=== PATIENT | male | born 1955 | race Caucasian/White ===

== ENCOUNTER → 2016-06-18 | Outpatient (CLI) | payer MEDICARE ==
--- NOTE | 2016-06-18 13:46 | CT ---
EXAMINATION TYPE: CT cervical spine wo con DATE OF EXAM: 06/18/2016 12:54 PM COMPARISON: NONE HISTORY: pain back of neck and into Rt shoulder posterior aspect. Stiffness of joint per order. CT DLP: 353.1 mGycm. Automated Exposure Control for Dose Reduction was Utilized. TECHNIQUE: CT scan of the cervical spine is obtained without contrast, axial images are obtained, sa gittal and coronal reformatted images are also reviewed. FINDINGS: There is completely opacified visualized portion of left mastoid air cells. Cervical spine is visualized in its entirety from C1 through upper thoracic levels, demonstrates satisfactory alignm ent without evidence of acute fracture or dislocation. Prevertebral soft tissue appears within sunday l limits. The C1-C2 articulation is within normal limits on the coronal images. Vertebral body heights are maintained. There is mild to moderate disc space narrowing with prominent anterior inferior spur C3-C4 level. There are artificial disks with anterior fusion plate at C4-C6 le vels, some ossific fusion at these levels is present. There is prominent anterior inferior osteophyte from T6 vertebra seen on sagittal image 53. No large posterior disc herniations are seen on sagittal images. Review of axial images at C2-C3 level shows left-sided uncovertebral facet degenerative changes causi ng moderate left-sided neural foraminal narrowing. Axial images at C3-C4 level show uncovertebral facet degenerative changes bilaterally causing moderat e to severe right and moderate left-sided neural foraminal narrowing. Axial images at C4-C5 through C6-C7 level show artificial disc material anterior fusion plate, bilate ral neural foramina are patent and spinal canal is preserved. Axial images at C7-T1 level are felt within normal limits. Mild emphysematous change in visualized lung apices is seen. There is moderate to severe calcified pl aque right carotid bulb extending into proximal internal carotid artery and more moderate plaque seen in the left carotid bulb. Mild mucosal thickening in the inferior portion of bilateral maxillary sin uses is present. IMPRESSION: There is postsurgical change C4-C6 level with satisfactory alignment, there is multilevel degenerative change most prominent at C3-C4 level. There is possible left-sided mastoiditis, clinica l correlation advised.
== END | disposition home or self-care (01) ==
LOC: RADCTMAIN 07:26
PROVIDERS: ATTEND Family Medicine
DX: M47.812 Spondylosis without myelopathy or radiculopathy, cervical region (principal); Z98.890 Other specified postprocedural states
CPT/HCPCS: 72125

== ENCOUNTER → 2016-07-10 | Outpatient (CLI) | payer MEDICARE ==
[2016-07-10 10:49] LABS: Basophils % (A) 0 %; CH 34.8; CHCM 33.8; Eosinophils # (A) 0.1 k/uL (0-0.7); Eosinophils % (A) 2 %; HCT 39.6 % (39.0-53.0); HDW 2.22; HGB 13.2 gm/dL (13.0-17.5); Luc # (Auto) 0.23; Luc % (Auto) 3; Lymphocytes # (A) 1.2 k/uL (1.0-4.8); Lymphocytes % (A) 15 %; MCH 34.6 pg (25.0-35.0); MCHC 33.5 g/dL (31.0-37.0); MCV 103.3 fL (80.0-100.0); Macrocytosis Slight; Monocytes # (A) 0.5 k/uL (0-1.0); Monocytes % (A) 7 %; Neutrophils # (A) 5.6 k/uL (1.3-7.7); Neutrophils % (A) 73 %; RBC 3.83 m/uL (4.30-5.90); RDW 12.7 % (11.5-15.5); WBC 7.6 k/uL (3.8-10.6)
[2016-07-10 11:29] LABS: ALT 47 U/L (21-72); AST 44 U/L (17-59); Alkaline Phosphatase 78 U/L (38-126); Anion Gap 10 mmol/L; Blood Urea Nitrogen 19 mg/dL (9-20); C Reactive Protein 10.8 mg/L (<10.0); Calcium 10.1 mg/dL (8.4-10.2); Carbon Dioxide 24 mmol/L (22-30); Chloride 108 mmol/L (98-107); Glucose 119 mg/dL (74-99); Non-African American GFR(MDRD) >60 (>60 ml/min/1.73 sqM); Potassium 4.8 mmol/L (3.5-5.1); Sodium 142 mmol/L (137-145); Total Bilirubin 0.7 mg/dL (0.2-1.3); Total Protein 7.7 g/dL (6.3-8.2)
[2016-07-10 15:12] LABS: Erythrocyte Sedimentation Rate 28 mm/hr (0-15)
== END | disposition home or self-care (01) ==
LOC: LABWHC1 09:34
PROVIDERS: ATTEND Physical Medicine & Rehabilitation
DX: M50.123 Cervical disc disorder at C6-C7 level with radiculopathy (principal); M47.22 Other spondylosis with radiculopathy, cervical region; M96.1 Postlaminectomy syndrome, not elsewhere classified; F43.12 Post-traumatic stress disorder, chronic
CPT/HCPCS: 36415; 80053; 85025; 85652; 86140

== ENCOUNTER 2016-07-23 12:37 | Inpatient (IN) | payer MEDICARE ==
[2016-07-23] MEDS ORDERED: SODIUM CHLORIDE 0.9% 1,000 ML IV STA (12:52)
[2016-07-23] MEDS ORDERED: LORazepam 2 MG/ML SYRINGE IV STA (13:08)
[2016-07-23 13:12] LABS: Basophils % (A) 0 %; CH 34.7; CHCM 34.3; Eosinophils # (A) 0.1 k/uL (0-0.7); Eosinophils % (A) 1 %; HCT 39.4 % (39.0-53.0); HDW 2.09; HGB 13.4 gm/dL (13.0-17.5); Luc # (Auto) 0.16; Luc % (Auto) 2; Lymphocytes # (A) 1.4 k/uL (1.0-4.8); Lymphocytes % (A) 17 %; MCH 34.6 pg (25.0-35.0); MCV 101.7 fL (80.0-100.0); Macrocytosis Slight; Mean Platelet Volume 7.7; Monocytes # (A) 0.4 k/uL (0-1.0); Monocytes % (A) 5 %; Neutrophils # (A) 6.6 k/uL (1.3-7.7); Neutrophils % (A) 76 %; RBC 3.88 m/uL (4.30-5.90); RDW 13.2 % (11.5-15.5); WBC 8.7 k/uL (3.8-10.6); WBC (Perox) 8.55
--- NOTE | 2016-07-23 13:22 | ED ---
SOB HPI - General Chief Complaint: Shortness of Breath Stated Complaint: SOB Time Seen by Provider: 07/23/16 12:37 Source: patient, EMS, RN notes reviewed Mode of arrival: EMS Limitations: no limitations - History of Present Illness Initial Comments: This is a 60-year-old male was brought in by EMS for complaints of shortness of breath is been going on since about 1 AM this morning he was shaky and flushed- appearing he did have chest pain last evening took one nitroglycerin woke up and still had chest pain but difficulty breathing. He was given 4 aspirin in route by EMS chest pain has resolved he has some nausea was noted to be in sinus tachycardia symptoms relief with this medication. He does still complain of dyspnea. He does admit to smoking cigarettes and drinking alcohol he does have a history of alcoholism he was off alcohol for a long period time he has started drinking again. He does have a history of emphysema COPD posterior medic stress disorder. Some cough no phlegm production no other symptoms reported at this time MD Complaint: shortness of breath, anxiety - Related Data Home Medications Medication Instructions Recorded Confirmed ALPRAZolam [Xanax] 2 mg PO BID 07/23/16 07/23/16 Aspirin 81 mg PO DAILY 07/23/16 07/23/16 Cholecalciferol [Vitamin D3] 1,000 unit PO DAILY 07/23/16 07/23/16 Clindamycin HCl [Cleocin] 600 mg PO ONCE PRN 07/23/16 07/23/16 Cyanocobalamin (Vitamin B-12) 1,000 mcg PO DAILY 07/23/16 07/23/16 [Vitamin B-12] Lisinopril 40 mg PO DAILY 07/23/16 07/23/16 Multivitamins, Thera [Multivitamin 1 tab PO DAILY 07/23/16 07/23/16 (formulary)] Nitroglycerin Sl Tabs [Nitrostat] 0.4 mg SUBLINGUAL Q5M PRN 07/23/16 07/23/16 Nitroglycerin [Nitro-Time] 6.5 mg PO BID 07/23/16 07/23/16 Omeprazole [PriLOSEC] 20 mg PO AC-BID 07/23/16 07/23/16 Simvastatin 80 mg PO DAILY 07/23/16 07/23/16 Sucralfate [Carafate] 1 gm PO AC-TID 07/23/16 07/23/16 diphenhydrAMINE [Benadryl] 25 mg PO QID PRN 07/23/16 07/23/16 Allergies Allergy/AdvReac Type Severity Reaction Status Date / Time amoxicillin Allergy Unknown Verified 07/23/16 13:53 clavulanic acid Allergy Unknown Verified 07/23/16 13:53 [From Augmentin] escitalopram [From Lexapro] Allergy Unknown Verified 07/23/16 13:53 latex Allergy Unknown Verified 07/23/16 13:53 metformin Allergy Unknown Verified 07/23/16 13:53 methylprednisolone Allergy Unknown Verified 07/23/16 13:53 Review of Systems ROS Statement: Those systems with pertinent positive or pertinent negative responses have been documented in the HPI. ROS Other: All systems not noted in ROS Statement are negative. Past Medical History Past Medical History: COPD, Hyperlipidemia, Hypertension History of Any Multi-Drug Resistant Organisms: None Reported Past Surgical History: Adenoidectomy, Appendectomy, Heart Catheterization, Tonsillectomy Additional Past Surgical History / Comment(s): surgery on his teeth Past Psychological History: Anxiety, PTSD Smoking Status: Current every day smoker Past Alcohol Use History: Daily, Heavy Past Drug Use History: None Reported General Exam - General Exam Comments Initial Comments: This is a well-developed well-nourished awake alert anxious appearing male he is hyperventilating Limitations: no limitations General appearance: alert, anxious, in distress Head exam: Present: atraumatic, normocephalic, normal inspection Eye exam: Present: normal appearance, PERRL, EOMI. Absent: scleral icterus, conjunctival injection, periorbital swelling ENT exam: Present: normal exam, mucous membranes moist Neck exam: Present: normal inspection. Absent: tenderness, meningismus, lymphadenopathy Respiratory exam: Present: decreased breath sounds. Absent: respiratory distress, wheezes, rales, rhonchi, stridor Cardiovascular Exam: Present: normal rhythm, tachycardia. Absent: systolic murmur, diastolic murmur, rubs, gallop, clicks GI/Abdominal exam: Present: soft, normal bowel sounds. Absent: distended, tenderness, guarding, rebound, rigid Extremities exam: Present: normal inspection, full ROM, normal capillary refill. Absent: tenderness, pedal edema, joint swelling, calf tenderness Back exam: Present: normal inspection Neurological exam: Present: alert, oriented X3, CN II-XII intact Psychiatric exam: Present: normal affect, normal mood Skin exam: Present: warm, dry, intact, normal color. Absent: rash Course Vital Signs 07/23/16 07/23/16 07/23/16 12:45 13:02 13:52 Temperature 98.3 F Pulse Rate 102 H 110 H Respiratory 18 18 18 Rate Blood Pressure 128/79 132/81 O2 Sat by Pulse 100 100 Oximetry 07/23/16 07/23/16 14:44 15:48 Temperature Pulse Rate 91 99 Respiratory 18 18 Rate Blood Pressure 118/78 126/82 O2 Sat by Pulse 100 97 Oximetry Medical Decision Making - Medical Decision Making I did discuss findings with patient family members. Also Dr. Rgoers. The presentation clinically is consistent with cardiac disease though GI etiologies not totally ruled out the patient states he has some epigastric discomfort. Patient will be admitted with cardiology consultation also vascular surgery consultation for evaluation the chronic appearing dissection - Lab Data Result diagrams: 07/23/16 13:00 07/23/16 13:00 Lab Results 07/23/16 07/23/16 07/23/16 Range/Units 13:00 13:00 13:00 WBC 8.7 (3.8-10.6) k/uL RBC 3.88 L (4.30-5.90) m/uL Hgb 13.4 (13.0-17.5) gm/dL Hct 39.4 (39.0-53.0) % MCV 101.7 H (80.0-100.0) fL MCH 34.6 (25.0-35.0) pg MCHC 34.0 (31.0-37.0) g/dL RDW 13.2 (11.5-15.5) % Plt Count 274 (150-450) k/uL Neutrophils % 76 % Lymphocytes % 17 % Monocytes % 5 % Eosinophils % 1 % Basophils % 0 % Neutrophils # 6.6 (1.3-7.7) k/uL Lymphocytes # 1.4 (1.0-4.8) k/uL Monocytes # 0.4 (0-1.0) k/uL Eosinophils # 0.1 (0-0.7) k/uL Basophils # 0.0 (0-0.2) k/uL Macrocytosis Slight PT (9.0-12.0) sec INR (<1.1) APTT (22.0-30.0) sec D-Dimer (<0.60) mg/L FEU Sodium 144 (137-145) mmol/L Potassium 4.5 (3.5-5.1) mmol/L Chloride 111 H (98-107) mmol/L Carbon Dioxide 20 L (22-30) mmol/L Anion Gap 13 mmol/L BUN 17 (9-20) mg/dL Creatinine 1.16 (0.66-1.25) mg/dL Est GFR (MDRD) Af Amer >60 (>60 ml/min/1.73 sqM) Est GFR (MDRD) Non-Af >60 (>60 ml/min/1.73 sqM) Glucose 107 H (74-99) mg/dL Calcium 10.6 H (8.4-10.2) mg/dL Magnesium 1.4 L (1.6-2.3) mg/dL Total Bilirubin 0.9 (0.2-1.3) mg/dL AST 43 (17-59) U/L ALT 47 (21-72) U/L Alkaline Phosphatase 74 (38-126) U/L Total Creatine Kinase 83 (55-170) U/L CK-MB (CK-2) 0.5 (0.0-2.4) ng/mL CK-MB (CK-2) Rel Index 0.6 Troponin I <0.012 (0.000-0.034) ng/mL NT-Pro-B Natriuret Pep pg/mL Total Protein 7.8 (6.3-8.2) g/dL Albumin 4.6 (3.5-5.0) g/dL Serum Alcohol <10 mg/dL 07/23/16 07/23/16 Range/Units 13:00 13:00 WBC (3.8-10.6) k/uL RBC (4.30-5.90) m/uL Hgb (13.0-17.5) gm/dL Hct (39.0-53.0) % MCV (80.0-100.0) fL MCH (25.0-35.0) pg MCHC (31.0-37.0) g/dL RDW (11.5-15.5) % Plt Count (150-450) k/uL Neutrophils % % Lymphocytes % % Monocytes % % Eosinophils % % Basophils % % Neutrophils # (1.3-7.7) k/uL Lymphocytes # (1.0-4.8) k/uL Monocytes # (0-1.0) k/uL Eosinophils # (0-0.7) k/uL Basophils # (0-0.2) k/uL Macrocytosis PT 10.2 (9.0-12.0) sec INR 1.0 (<1.1) APTT 24.3 (22.0-30.0) sec D-Dimer 0.65 H (<0.60) mg/L FEU Sodium (137-145) mmol/L Potassium (3.5-5.1) mmol/L Chloride (98-107) mmol/L Carbon Dioxide (22-30) mmol/L Anion Gap mmol/L BUN (9-20) mg/dL Creatinine (0.66-1.25) mg/dL Est GFR (MDRD) Af Amer (>60 ml/min/1.73 sqM) Est GFR (MDRD) Non-Af (>60 ml/min/1.73 sqM) Glucose (74-99) mg/dL Calcium (8.4-10.2) mg/dL Magnesium (1.6-2.3) mg/dL Total Bilirubin (0.2-1.3) mg/dL AST (17-59) U/L ALT (21-72) U/L Alkaline Phosphatase (38-126) U/L Total Creatine Kinase (55-170) U/L CK-MB (CK-2) (0.0-2.4) ng/mL CK-MB (CK-2) Rel Index Troponin I (0.000-0.034) ng/mL NT-Pro-B Natriuret Pep 123 pg/mL Total Protein (6.3-8.2) g/dL Albumin (3.5-5.0) g/dL Serum Alcohol mg/dL - EKG Data -: EKG Interpreted by [facility] EKG shows normal: sinus rhythm (EKG shows sinus tachycardia of 102. Interval 134 QRS duration 70 daily since QTC of 344/448 poor R-wave progression) - Radiology Data Radiology results: report reviewed (I did review the imaging and results x-ray was negative for acute findings CAT scan was done due to the elevated d-dimer. 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 Please see the complete report), image reviewed Disposition Clinical Impression: Chest pain, COPD exacerbation Disposition: ADMITTED IP TO THIS HOSP Condition: Stable Referrals: Gregorio Rogers MD [Primary Care Provider] - 1-2 days
[2016-07-23 13:26] LABS: ALT 47 U/L (21-72); AST 43 U/L (17-59); Alcohol <10 mg/dL; Alkaline Phosphatase 74 U/L (38-126); Anion Gap 13 mmol/L; Blood Urea Nitrogen 17 mg/dL (9-20); Calcium 10.6 mg/dL (8.4-10.2); Carbon Dioxide 20 mmol/L (22-30); Chloride 111 mmol/L (98-107); Glucose 107 mg/dL (74-99); Magnesium 1.4 mg/dL (1.6-2.3); Non-African American GFR(MDRD) >60 (>60 ml/min/1.73 sqM); Potassium 4.5 mmol/L (3.5-5.1); Sodium 144 mmol/L (137-145); Total Bilirubin 0.9 mg/dL (0.2-1.3); Total Protein 7.8 g/dL (6.3-8.2)
[2016-07-23 13:28] LABS: Partial Thromboplastin Time 24.3 sec (22.0-30.0); Prothrombin Time 10.2 sec (9.0-12.0)
--- NOTE | 2016-07-23 13:33 | XR ---
EXAMINATION TYPE: XR chest 2V DATE OF EXAM: 07/23/2016 1:25 PM COMPARISON: 06/12/2014 TECHNIQUE: PA and lateral views submitted. HISTORY: Difficulty breathing FINDINGS: The lungs are clear and there is no pneumothorax, pleural effusion, or focal pneumonia. Arthropathy of the shoulders. IMPRESSION: 1. No acute process.
[2016-07-23] MEDS ORDERED: PROMETHAZINE INJ 25 MG in SODIUM CHLORIDE 0.9% 50 ML IVPB STA (13:58)
[2016-07-23 14:17] LABS: Creatine Kinase 83 U/L (55-170)
[2016-07-23 14:28] LABS: Creatine Kinase MB 0.5 ng/mL (0.0-2.4); Troponin I <0.012 ng/mL (0.000-0.034)
[2016-07-23] MEDS ORDERED: MAGNESIUM SULFATE-D5W PMX 1 GM in DEXTROSE/WATER 1 100ML.BAG IVPB ONE ×2 (15:00→17:00)
[2016-07-23] MEDS ORDERED: RX INFO: IV CONTRAST WAS GIVEN 1 EACH MISC MISCELLANE PRN (15:01)
--- NOTE | 2016-07-23 16:09 | CT ---
EXAMINATION TYPE: CT angio chest DATE OF EXAM: 07/23/2016 3:34 PM COMPARISON: Previous study dated 06/12/2014. HISTORY: SOB CT DLP: 478 mGycm Automated exposure control for dose reduction was used. CONTRAST: CTA scan of the thorax is performed with IV Contrast, patient injected with 100 mL of Omnipaque 350, pulmonary embolism protocol. MIP images are created and reviewed. FINDINGS: There are diffuse emphysematous changes throughout the lungs. These are reasonably mild. Th ere is some dependent atelectasis in the dependent portions of the lungs. No parenchymal nodules are seen. There is no significant axillary, mediastinal or hilar adenopathy. There is no evidence of pulmonary embolus. The aorta is normal in caliber. There is a type B self-limiting chronic dissection within the thoraci c and upper abdominal aorta. The heart is not enlarged. The esophagus is patulous. There is debris within the esophagus. Visualized upper abdominal structures are unremarkable. No bony destructive lesion is seen. IMPRESSION: 1. THIS EXAMINATION IS NEGATIVE FOR PULMONARY EMBOLUS. 2. 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 3. DIFFUSE EMPHYSEMATOUS CHANGES THROUGHOUT THE LUNGS. 4. PATULOUS ESOPHAGUS CONTAINING DEBRIS.
[2016-07-23] MEDS ORDERED: HEPARIN SODIUM,PORCINE 5,000 UNIT/ML 1 ML VIAL IV ONE (16:27)
[2016-07-23] MEDS ORDERED: NITROGLYCERIN SL TABS 0.4 MG TAB SUBLINGUAL PRN (16:27)
[2016-07-23] MEDS ORDERED: HEPARIN SODIUM,PORCINE/D5W PMX 25,000 UNIT in DEXTROSE/WATER 1 500ML.BAG IV SCH (16:30)
[2016-07-23] MEDS ORDERED: diphenhydrAMINE 25 MG CAP PO PRN (16:30)
[2016-07-23] MEDS: SODIUM CHLORIDE 0.9% 1,000 ML IV SCH (16:50)
[2016-07-23] MEDS ORDERED: PANTOPRAZOLE 40 MG TABLET PO SCH (17:30)
[2016-07-23] MEDS ORDERED: NITROGLYCERIN OINT 1 INCH/GM PACKET TOPICAL SCH (18:00)
[2016-07-23 19:44] LABS: Creatine Kinase 86 U/L (55-170)
[2016-07-23] MEDS ORDERED: LORazepam 2 MG/ML SYRINGE IV PRN ×2 (19:55)
[2016-07-23 19:57] LABS: Creatine Kinase MB 0.4 ng/mL (0.0-2.4); Troponin I <0.012 ng/mL (0.000-0.034)
[2016-07-23] MEDS ORDERED: methylPREDNISolone SOD SUCCI 40 MG/ML 1 ML VIAL IV STA (20:04)
[2016-07-23] MEDS ORDERED: THIAMINE 100 MG/ML 2 ML VIAL IM STA (20:05)
[2016-07-23 20:31] VITALS: BMI 25.3
[2016-07-23] MEDS: ONDANSETRON 4 MG/2 ML VIAL IVP PRN (20:32)
[2016-07-23] MEDS: SUCRALFATE 1 GM TAB PO SCH (21:27)
[2016-07-23] MEDS ORDERED: PANTOPRAZOLE 40 MG/10 ML VIAL IVP ONE (21:29)
--- NOTE | 2016-07-23 21:29 | US ---
EXAMINATION TYPE: US abdomen complete DATE OF EXAM: 07/23/2016 9:04 PM COMPARISON: CT chest in PACS CLINICAL HISTORY: Nausea. Difficult exam as patient is in pain and vomiting throughout exam making it difficult to take a deep breath in and hold it. Patient movement throughout exam EXAM MEASUREMENTS: Liver Length: 13.8 cm Gallbladder Wall: 0.2 cm CBD: 0.4 cm Spleen: 7.1 cm Right Kidney: 9.6 x 5.2 x 5.4 cm Left Kidney: 9.5 x 5.7 x 4.9 cm Pancreas: Tail obscured by bowel gas, visualized portions wnl Liver: wnl Gallbladder: wnl Evidence for sonographic Rivera's sign: No CBD: wnl Spleen: wnl Right Kidney: No hydronephrosis or masses seen Left Kidney: No hydronephrosis or masses seen Upper IVC: wnl Abd Aorta: Proximal aorta obscured by bowel gas. Unable to visualize dissection seen on CT today IMPRESSION: Negative complete abdominal sonogram. No gallstones or dilated ducts.
[2016-07-23] MEDS: LORazepam 2 MG/ML SYRINGE IV PRN (21:34)
[2016-07-23] MEDS: ALPRAZolam 0.5 MG TAB PO SCH (21:35)
[2016-07-23] MEDS: THIAMINE 100 MG TAB PO SCH (21:35)
[2016-07-23] MEDS: NITROGLYCERIN EXTENDED RELEASE 6.5 MG CAPSULE.ER PO SCH (21:40)
[2016-07-23] MEDS: HYDROmorphone 1 MG/ML 1 ML SYRINGE IVP PRN (22:58)
[2016-07-24] MEDS ORDERED: HEPARIN SODIUM,PORCINE 5,000 UNIT/ML 1 ML VIAL IV STA (01:16)
[2016-07-24 01:58] LABS: Creatine Kinase 140 U/L (55-170)
[2016-07-24 02:11] LABS: Creatine Kinase MB 0.6 ng/mL (0.0-2.4); Troponin I <0.012 ng/mL (0.000-0.034)
[2016-07-24] MEDS: HYDROmorphone 1 MG/ML 1 ML SYRINGE IVP PRN ×5 (02:16→21:04)
[2016-07-24] MEDS: ONDANSETRON 4 MG/2 ML VIAL IVP PRN ×3 (02:16→17:22)
[2016-07-24] MEDS: SUCRALFATE 1 GM TAB PO SCH ×3 (06:23→18:19)
[2016-07-24 06:51] LABS: Magnesium 1.9 mg/dL (1.6-2.3)
[2016-07-24] MEDS: ALPRAZolam 0.5 MG TAB PO SCH ×2 (08:05→20:51)
[2016-07-24] MEDS: PANTOPRAZOLE 40 MG/10 ML VIAL IVP SCH (08:06)
--- NOTE | 2016-07-24 08:14 | P.CRDCN ---
<Radha Quintana E - Last Filed: 07/24/16 08:03> History of Present Illness Consult date: 07/24/16 Requesting physician: Gregorio Rogers Consult reason: chest pain Chief complaint: Abdominal Pain and vomiting History of present illness: This is a 60-year-old gentleman with history of hypertension, hyperlipidemia, nicotine dependence, EtOH abuse, emphysema, presents to the hospital with symptoms of abdominal pain that radiates up into the chest, associated nausea and vomiting. According to the patient, he does get short of breath, but only when the pain and vomiting become severe. Patient also states that he had a cardiac catheterization in 2005 which was reported to be normal. EKG on arrival here shows a sinus tachycardia with no acute changes. Chest x- ray does not reveal any acute process. 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 Blood pressure on arrival 128/79 with a heart rate of 102, temperature 98.0.300 % on 2 L. WBC 8.7, hemoglobin 13.4, platelet count 274. D-dimer 0.6. Potassium 4.5, BUN 17, creatinine 1.6. Troponins have been negative 3. Cholesterol 204, LDL 96, HDL 97, triglycerides 55, TSH 0.566 and free T4 1 0.11. At the time of my examination this morning, patient complains of mild nausea he did have an episode of emesis earlier this morning. He denies any chest discomfort or difficulty in breathing. Past Medical History Past Medical History: COPD, Hyperlipidemia, Hypertension History of Any Multi-Drug Resistant Organisms: None Reported Past Surgical History: Adenoidectomy, Appendectomy, Heart Catheterization, Tonsillectomy Additional Past Surgical History / Comment(s): surgery on his teeth Past Anesthesia/Blood Transfusion Reactions: No Reported Reaction Past Psychological History: Anxiety, PTSD Smoking Status: Current every day smoker Past Alcohol Use History: Daily, Heavy Past Drug Use History: None Reported - Past Family History Mother Family Medical History: CVA/TIA Medications and Allergies Home Medications Medication Instructions Recorded Confirmed Type ALPRAZolam [Xanax] 2 mg PO BID 07/23/16 07/23/16 History Aspirin 81 mg PO DAILY 07/23/16 07/23/16 History Cholecalciferol [Vitamin D3] 1,000 unit PO DAILY 07/23/16 07/23/16 History Clindamycin HCl [Cleocin] 600 mg PO ONCE PRN 07/23/16 07/23/16 History Cyanocobalamin (Vitamin B-12) 1,000 mcg PO DAILY 07/23/16 07/23/16 History [Vitamin B-12] Lisinopril 40 mg PO DAILY 07/23/16 07/23/16 History Multivitamins, Thera [Multivitamin 1 tab PO DAILY 07/23/16 07/23/16 History (formulary)] Nitroglycerin Sl Tabs [Nitrostat] 0.4 mg SUBLINGUAL Q5M PRN 07/23/16 07/23/16 History Nitroglycerin [Nitro-Time] 6.5 mg PO BID 07/23/16 07/23/16 History Omeprazole [PriLOSEC] 20 mg PO AC-BID 07/23/16 07/23/16 History Simvastatin 80 mg PO DAILY 07/23/16 07/23/16 History Sucralfate [Carafate] 1 gm PO AC-TID 07/23/16 07/23/16 History diphenhydrAMINE [Benadryl] 25 mg PO QID PRN 07/23/16 07/23/16 History Allergies Allergy/AdvReac Type Severity Reaction Status Date / Time amoxicillin Allergy Unknown Verified 07/23/16 13:53 clavulanic acid Allergy Unknown Verified 07/23/16 13:53 [From Augmentin] escitalopram [From Lexapro] Allergy Unknown Verified 07/23/16 13:53 latex Allergy Unknown Verified 07/23/16 13:53 metformin Allergy Unknown Verified 07/23/16 13:53 methylprednisolone Allergy Unknown Verified 07/23/16 13:53 Physical Exam Vitals: Vital Signs Temp Pulse Pulse Pulse Resp BP BP 07/24/16 07:59 97.7 F 79 18 07/24/16 04:00 97.5 F L 107 H 18 07/24/16 00:00 99.1 F 101 H 18 123/62 07/23/16 20:04 105 H 18 07/23/16 20:03 07/23/16 20:02 97 F L 91 18 127/79 07/23/16 18:03 99.2 F 96 18 134/87 07/23/16 16:54 98.9 F 100 18 127/86 07/23/16 15:48 99 18 126/82 07/23/16 14:44 91 18 118/78 07/23/16 13:52 110 H 18 132/81 07/23/16 13:02 18 07/23/16 12:45 98.3 F 102 H 18 128/79 BP Pulse Ox 07/24/16 07:59 113/71 99 07/24/16 04:00 111/71 98 07/24/16 00:00 97 07/23/16 20:04 07/23/16 20:03 97 07/23/16 20:02 100 07/23/16 18:03 97 07/23/16 16:54 99 07/23/16 15:48 97 07/23/16 14:44 100 07/23/16 13:52 100 07/23/16 13:02 07/23/16 12:45 100 Intake and Output 07/23/16 07/24/16 07/24/16 22:59 06:59 14:59 Intake Total 1741.863 Output Total 350 200 Balance -350 1541.863 Intake: IV 220.42 Heparin Sodium,Porcine/ 220.42 D5w Pmx 25,000 unit In Dextrose/Water 1 500ml. bag @ 12 UNITS/KG/HR 17. 63 mls/hr IV .Q24H [facility] Rx #:[id number] Intake, IV Titration 1521.443 Amount Heparin Sodium,Porcine/ 271.443 D5w Pmx 25,000 unit In Dextrose/Water 1 500ml. bag @ 12 UNITS/KG/HR 17. 63 mls/hr IV .Q24H [facility] Rx #:[id number] Magnesium Sulfate-D5w Pmx 100 1 gm In Dextrose/Water 1 100ml.bag @ 100 mls/hr IVPB ONCE ONE Rx#: [id number] Magnesium Sulfate-D5w Pmx 100 1 gm In Dextrose/Water 1 100ml.bag @ 100 mls/hr IVPB ONCE ONE Rx#: [id number] Sodium Chloride 0.9% 1, 1050 000 ml @ 20 mls/hr IV . Q24H [facility] Rx#:[id number] Output: Urine 350 200 Other: Voiding Method Toilet Urinal # Voids 1 1 Weight 73.482 kg 68.2 kg PHYSICAL EXAMINATION: HEENT: Head is atraumatic, normocephalic. Pupils equal, round. Neck is supple. There is no elevated jugular venous pressure. HEART EXAMINATION: Heart S1, S2 normal. No murmur or gallop heard. CHEST EXAMINATION: Lungs reveal scattered coarse rhonchi and wheezing throughout. ABDOMEN: Soft, generalized tenderness noted . Bowel sounds are heard. No organomegaly noted. EXTREMITIES: 2+ peripheral pulses with no evidence of peripheral edema and no calf tenderness noted. NEUROLOGIC patient is awake, alert and oriented -3. . Results 07/23/16 13:00 07/23/16 13:00 Cardiac Enzymes 07/23/16 07/23/16 07/23/16 Range/Units 13:00 13:00 19:12 AST 43 (17-59) U/L CK-MB (CK-2) 0.5 0.4 (0.0-2.4) ng/mL Troponin I <0.012 <0.012 (0.000-0.034) ng/mL 07/24/16 Range/Units 01:14 AST (17-59) U/L CK-MB (CK-2) 0.6 (0.0-2.4) ng/mL Troponin I <0.012 (0.000-0.034) ng/mL Coagulation 07/23/16 07/23/16 07/24/16 Range/Units 13:00 23:26 06:22 PT 10.2 (9.0-12.0) sec APTT 24.3 34.5 H 63.4 H (22.0-30.0) sec Lipids 07/24/16 Range/Units 06:22 Triglycerides 55 (<150) mg/dL Cholesterol 204 H (<200) mg/dL HDL Cholesterol 97 H (40-60) mg/dL CBC 07/23/16 Range/Units 13:00 WBC 8.7 (3.8-10.6) k/uL RBC 3.88 L (4.30-5.90) m/uL Hgb 13.4 (13.0-17.5) gm/dL Hct 39.4 (39.0-53.0) % Plt Count 274 (150-450) k/uL Comprehensive Metabolic Panel 07/23/16 Range/Units 13:00 Sodium 144 (137-145) mmol/L Potassium 4.5 (3.5-5.1) mmol/L Chloride 111 H (98-107) mmol/L Carbon Dioxide 20 L (22-30) mmol/L BUN 17 (9-20) mg/dL Creatinine 1.16 (0.66-1.25) mg/dL Glucose 107 H (74-99) mg/dL Calcium 10.6 H (8.4-10.2) mg/dL AST 43 (17-59) U/L ALT 47 (21-72) U/L Alkaline Phosphatase 74 (38-126) U/L Total Protein 7.8 (6.3-8.2) g/dL Albumin 4.6 (3.5-5.0) g/dL Current Medications Generic Name Dose Route Start Last Admin Trade Name Freq PRN Reason Stop Dose Admin Alprazolam 2 mg 07/23/16 21:00 07/23/16 21:35 Xanax PO Not Given BID [facility] Aspirin 325 mg 07/24/16 09:00 Aspirin PO DAILY [facility] Atorvastatin Calcium 40 mg 07/24/16 09:00 Lipitor PO DAILY [facility] Cyanocobalamin 1,000 mcg 07/24/16 09:00 Vitamin B-12 PO DAILY [facility] Diphenhydramine HCl 25 mg 07/23/16 16:30 Benadryl PO QID PRN Allergy Symptoms Hydromorphone HCl 0.5 mg 07/23/16 22:27 07/24/16 02:16 Dilaudid IVP 0.5 mg Q4HR PRN Administration Pain Heparin Sodium/Dextrose 25,000 500 mls @ 17.63 mls/hr 07/23/16 16:30 06:49 unit/ IV Solution IV 15 units/kg/hr .Q24H [facility] 22.04 mls/hr Protocol Titration 12 UNITS/KG/HR Sodium Chloride 1,000 mls @ 20 mls/hr 07/23/16 16:30 07/23/16 16:50 Saline 0.9% IV 20 mls/hr .Q24H [facility] Administration Lisinopril 40 mg 07/24/16 09:00 Zestril PO DAILY [facility] Lorazepam 1 mg 07/23/16 19:55 07/23/16 21:34 Ativan IV 1 mg Q2HR PRN Administration CIWA 8 or 9 Lorazepam 1 mg 07/23/16 19:55 Ativan IV Q1HR PRN CIWA 10 to 15 Lorazepam 2 mg 07/23/16 19:55 Ativan IV Q1HR PRN CIWA 16 or higher Miscellaneous Information 1 each 07/23/16 15:01 07/23/16 15:55 Rx Info: Iv Contrast Was Given MISCELLANE 07/25/16 15:01 1 each DAILY PRN Administration Per Protocol Multivitamins 1 each 07/24/16 12:00 Theragran PO 1200 [facility] Nitroglycerin 6.5 mg 07/23/16 21:00 07/23/16 21:40 Nitro-Bid PO Not Given BID [facility] Nitroglycerin 0.4 mg 07/23/16 16:27 Nitrostat SUBLINGUAL Q5M PRN Chest Pain Ondansetron HCl 4 mg 07/23/16 19:58 07/24/16 02:16 Zofran IVP 4 mg Q6HR PRN Administration Nausea And Vomiting Pantoprazole Sodium 40 mg 07/24/16 09:00 Protonix IVP DAILY [facility] Sucralfate 1 gm 07/23/16 17:30 07/24/16 06:23 Carafate PO 1 gm AC-TID [facility] Administration Thiamine HCl 100 mg 07/23/16 20:15 07/23/16 21:35 Vitamin B-1 PO Not Given BID@1200,1700 [facility] Intake and Output 07/23/16 07/24/16 07/24/16 22:59 06:59 14:59 Intake Total 1741.863 Output Total 350 200 Balance -350 1541.863 Intake: IV 220.42 Heparin Sodium,Porcine/ 220.42 D5w Pmx 25,000 unit In Dextrose/Water 1 500ml. bag @ 12 UNITS/KG/HR 17. 63 mls/hr IV .Q24H [facility] Rx #:[id number] Intake, IV Titration 1521.443 Amount Heparin Sodium,Porcine/ 271.443 D5w Pmx 25,000 unit In Dextrose/Water 1 500ml. bag @ 12 UNITS/KG/HR 17. 63 mls/hr IV .Q24H [facility] Rx #:[id number] Magnesium Sulfate-D5w Pmx 100 1 gm In Dextrose/Water 1 100ml.bag @ 100 mls/hr IVPB ONCE ONE Rx#: [id number] Magnesium Sulfate-D5w Pmx 100 1 gm In Dextrose/Water 1 100ml.bag @ 100 mls/hr IVPB ONCE ONE Rx#: [id number] Sodium Chloride 0.9% 1, 1050 000 ml @ 20 mls/hr IV . Q24H [facility] Rx#:[id number] Output: Urine 350 200 Other: Voiding Method Toilet Urinal # Voids 1 1 Weight 73.482 kg 68.2 kg 07/23/16 13:00 07/23/16 13:00 EKG Interpretations (text) EKG shows a normal sinus rhythm with no acute changes. Assessment and Plan Plan: Assessment and plan #1 abdominal pain with radiation up into the chest area, associated nausea and vomiting. Abdominal ultrasound negative. CT of the chest reveals a chronic self limiting type B dissection within the thoracic and upper abdominal aorta. #2 atypical chest pain, troponins negative 3 EKG shows normal sinus rhythm with no acute changes. CT of the chest negative for pulmonary embolism. According to the patient, he states he had a cardiac catheterization performed in 2005 which was reported to be normal. #3 history of hypertension #4 hyperlipidemia #5 emphysema #6 nicotine dependence #7 EtOH abuse Plan We will discontinue the IV heparin and Nitropaste. Discontinue aspirin. Echocardiogram with Doppler study will be performed. Further recommendations to follow. Patient has been advised regarding the importance of nicotine and EtOH cessation. DNP note has been reviewed, I agree with a documented findings and plan of care. Patient was seen and examined. <Lisandro Chawla - Last Filed: 07/24/16 12:11> Physical Exam Vitals: Vital Signs Temp Pulse Pulse Pulse Resp BP BP 07/24/16 09:18 07/24/16 07:59 97.7 F 79 18 07/24/16 04:00 97.5 F L 107 H 18 07/24/16 00:00 99.1 F 101 H 18 123/62 07/23/16 20:04 105 H 18 07/23/16 20:03 07/23/16 20:02 97 F L 91 18 127/79 07/23/16 18:03 99.2 F 96 18 134/87 07/23/16 16:54 98.9 F 100 18 127/86 07/23/16 15:48 99 18 126/82 07/23/16 14:44 91 18 118/78 07/23/16 13:52 110 H 18 132/81 07/23/16 13:02 18 07/23/16 12:45 98.3 F 102 H 18 128/79 BP Pulse Ox 07/24/16 09:18 99 07/24/16 07:59 113/71 99 07/24/16 04:00 111/71 98 07/24/16 00:00 97 07/23/16 20:04 07/23/16 20:03 97 07/23/16 20:02 100 07/23/16 18:03 97 07/23/16 16:54 99 07/23/16 15:48 97 07/23/16 14:44 100 07/23/16 13:52 100 07/23/16 13:02 07/23/16 12:45 100 Intake and Output 07/23/16 07/24/16 07/24/16 22:59 06:59 14:59 Intake Total 1741.863 Output Total 350 200 Balance -350 1541.863 Intake: IV 220.42 Heparin Sodium,Porcine/ 220.42 D5w Pmx 25,000 unit In Dextrose/Water 1 500ml. bag @ 12 UNITS/KG/HR 17. 63 mls/hr IV .Q24H [facility] Rx #:[id number] Intake, IV Titration 1521.443 Amount Heparin Sodium,Porcine/ 271.443 D5w Pmx 25,000 unit In Dextrose/Water 1 500ml. bag @ 12 UNITS/KG/HR 17. 63 mls/hr IV .Q24H [facility] Rx #:[id number] Magnesium Sulfate-D5w Pmx 100 1 gm In Dextrose/Water 1 100ml.bag @ 100 mls/hr IVPB ONCE ONE Rx#: [id number] Magnesium Sulfate-D5w Pmx 100 1 gm In Dextrose/Water 1 100ml.bag @ 100 mls/hr IVPB ONCE ONE Rx#: [id number] Sodium Chloride 0.9% 1, 1050 000 ml @ 20 mls/hr IV . Q24H [facility] Rx#:[id number] Output: Urine 350 200 Other: Voiding Method Toilet Urinal # Voids 1 1 Weight 73.482 kg 68.2 kg Results 07/23/16 13:00 07/23/16 13:00 Cardiac Enzymes 07/23/16 07/23/1607/23/17 Range/Units 13:00 13:00 19:12 AST 43 (17-59) U/L CK-MB (CK-2) 0.5 0.4 (0.0-2.4) ng/mL Troponin I <0.012 <0.012 (0.000-0.034) ng/mL 07/24/16 Range/Units 01:14 AST (17-59) U/L CK-MB (CK-2) 0.6 (0.0-2.4) ng/mL Troponin I <0.012 (0.000-0.034) ng/mL Coagulation 07/23/16 07/23/16 07/24/16 Range/Units 13:00 23:26 06:22 PT 10.2 (9.0-12.0) sec APTT 24.3 34.5 H 63.4 H (22.0-30.0) sec Lipids 07/24/16 Range/Units 06:22 Triglycerides 55 (<150) mg/dL Cholesterol 204 H (<200) mg/dL HDL Cholesterol 97 H (40-60) mg/dL CBC 07/23/16 Range/Units 13:00 WBC 8.7 (3.8-10.6) k/uL RBC 3.88 L (4.30-5.90) m/uL Hgb 13.4 (13.0-17.5) gm/dL Hct 39.4 (39.0-53.0) % Plt Count 274 (150-450) k/uL Comprehensive Metabolic Panel 07/23/16 Range/Units 13:00 Sodium 144 (137-145) mmol/L Potassium 4.5 (3.5-5.1) mmol/L Chloride 111 H (98-107) mmol/L Carbon Dioxide 20 L (22-30) mmol/L BUN 17 (9-20) mg/dL Creatinine 1.16 (0.66-1.25) mg/dL Glucose 107 H (74-99) mg/dL Calcium 10.6 H (8.4-10.2) mg/dL AST 43 (17-59) U/L ALT 47 (21-72) U/L Alkaline Phosphatase 74 (38-126) U/L Total Protein 7.8 (6.3-8.2) g/dL Albumin 4.6 (3.5-5.0) g/dL Current Medications Generic Name Dose Route Start Last Admin Trade Name Freq PRN Reason Stop Dose Admin Alprazolam 2 mg 07/23/16 21:00 07/24/16 08:05 Xanax PO 2 mg BID [facility] Administration Atorvastatin Calcium 40 mg 07/24/16 09:00 Lipitor PO DAILY [facility] Cyanocobalamin 1,000 mcg 07/24/16 09:00 Vitamin B-12 PO DAILY [facility] Diphenhydramine HCl 25 mg 07/23/16 16:30 Benadryl PO QID PRN Allergy Symptoms Hydromorphone HCl 0.5 mg 07/23/16 22:27 07/24/16 11:56 Dilaudid IVP 0.5 mg Q4HR PRN Administration Pain Sodium Chloride 1,000 mls @ 20 mls/hr 07/23/16 16:30 07/23/16 16:50 Saline 0.9% IV 20 mls/hr .Q24H [facility] Administration Lisinopril 40 mg 07/24/16 09:00 Zestril PO DAILY [facility] Lorazepam 1 mg 07/23/16 19:55 07/23/16 21:34 Ativan IV 1 mg Q2HR PRN Administration CIWA 8 or 9 Lorazepam 1 mg 07/23/16 19:55 Ativan IV Q1HR PRN CIWA 10 to 15 Lorazepam 2 mg 07/23/16 19:55 Ativan IV Q1HR PRN CIWA 16 or higher Miscellaneous Information 1 each 07/23/16 15:01 07/23/16 15:55 Rx Info: Iv Contrast Was Given MISCELLANE 07/25/16 15:01 1 each DAILY PRN Administration Per Protocol Multivitamins 1 each 07/24/16 12:00 Theragran PO 1200 [facility] Nitroglycerin 6.5 mg 07/23/16 21:00 07/23/16 21:40 Nitro-Bid PO Not Given BID [facility] Nitroglycerin 0.4 mg 07/23/16 16:27 Nitrostat SUBLINGUAL Q5M PRN Chest Pain Ondansetron HCl 4 mg 07/23/16 19:58 07/24/16 08:12 Zofran IVP 4 mg Q6HR PRN Administration Nausea And Vomiting Pantoprazole Sodium 40 mg 07/24/16 09:00 07/24/16 08:06 Protonix IVP 40 mg DAILY [facility] Administration Sucralfate 1 gm 07/23/16 17:30 07/24/16 06:23 Carafate PO 1 gm AC-TID [facility] Administration Thiamine HCl 100 mg 07/23/16 20:15 07/23/16 21:35 Vitamin B-1 PO Not Given BID@1200,1700 [facility] Intake and Output 07/23/16 07/24/16 07/24/16 22:59 06:59 14:59 Intake Total 1741.863 Output Total 350 200 Balance -350 1541.863 Intake: IV 220.42 Heparin Sodium,Porcine/ 220.42 D5w Pmx 25,000 unit In Dextrose/Water 1 500ml. bag @ 12 UNITS/KG/HR 17. 63 mls/hr IV .Q24H [facility] Rx #:[id number] Intake, IV Titration 1521.443 Amount Heparin Sodium,Porcine/ 271.443 D5w Pmx 25,000 unit In Dextrose/Water 1 500ml. bag @ 12 UNITS/KG/HR 17. 63 mls/hr IV .Q24H [facility] Rx #:[id number] Magnesium Sulfate-D5w Pmx 100 1 gm In Dextrose/Water 1 100ml.bag @ 100 mls/hr IVPB ONCE ONE Rx#: [id number] Magnesium Sulfate-D5w Pmx 100 1 gm In Dextrose/Water 1 100ml.bag @ 100 mls/hr IVPB ONCE ONE Rx#: [id number] Sodium Chloride 0.9% 1, 1050 000 ml @ 20 mls/hr IV . Q24H [facility] Rx#:[id number] Output: Urine 350 200 Other: Voiding Method Toilet Urinal # Voids 1 1 Weight 73.482 kg 68.2 kg 07/23/16 13:00 07/23/16 13:00
[2016-07-24] MEDS ORDERED: ASPIRIN 325 MG TAB PO SCH (09:00)
--- NOTE | 2016-07-24 09:40 | HP ---
DATE OF ADMISSION: CHIEF COMPLAINT: Abdominal pain and vomiting. HISTORY OF PRESENT ILLNESS: This is a 60-year-old white male came in with epigastric pain, nausea, vomiting, after swallowing a big piece of ham that he did not chew up good. He is also possibly going through some alcohol withdrawal. But due to atypical chest pain radiating up into the chest, he is admitted to rule out myocardial infarction. Surgical consult is ordered at this time. He also has a history of cardiac catheterization in 2005, which was normal. CTA of the chest was negative for PE. He had atypical dissection which Dr. Veronica will be looking at at this time. Labs were reviewed. He has history of COPD, hypertension, dyslipidemia, anxiety and alcoholism. SURGICAL HISTORY: Appendectomy, adenoidectomy, heart catheterization, tonsillectomy. Current every day smoker, alcohol heavy. HOME MEDICINES: 1. Xanax. 2. Aspirin. 3. Vitamin D. 4. Cleocin. 5. B12. 6. Lisinopril. 7. Multivitamin. 8. Nitrostat. 9. Prilosec. 10. Carafate. 11. Benadryl. 12. Simvastatin. Fourteen-point review of systems negative except for as mentioned in HPI. Blood pressure is 110 to 113 over 70, temperature 97 to 98, O2 of 97% to 100%. CARDIOVASCULAR: S1, S2. LUNGS: Scattered wheeze x4. HEMATOLOGIC: Negative Homans. PSYCH: Fair mood and affect. NEUROLOGIC: Alert and oriented x3. VASCULAR: Normal dorsalis pedis, posterior tibial and radial pulse. Labs were reviewed. ASSESSMENT: 1. Acute abdominal pain, suspect alcohol abuse, alcohol withdrawal, possible food poisoning. Amylase, lipase were ordered. CAT scan of the abdomen is ordered. 2. Atypical chest pains. Cardiology will re-evaluate, but doubt if there is any heart disease going on at this time. 3. Hypertension. 4. Dyslipidemia. 5. Chronic obstructive pulmonary disease. 6. Nicotine addiction. 7. Substance abuse with alcohol. Alcohol withdrawal protocol. Possible discharge home if cleared by cardiology. Vascular will see him for CTA of the aneurysm.
[2016-07-24] MEDS: CYANOCOBALAMIN 500 MCG TAB PO SCH (12:32)
[2016-07-24] MEDS: LISINOPRIL 20 MG TAB PO SCH (12:32)
[2016-07-24] MEDS: ATORVASTATIN 40 MG TAB PO SCH (12:32)
[2016-07-24] MEDS: MULTIVITAMINS, THERA 1 EACH TAB PO SCH (12:32)
[2016-07-24] MEDS: NITROGLYCERIN EXTENDED RELEASE 6.5 MG CAPSULE.ER PO SCH ×2 (12:32→20:50)
[2016-07-24] MEDS: THIAMINE 100 MG TAB PO SCH ×2 (12:32→18:19)
[2016-07-24] MEDS: METOCLOPRAMIDE 5 MG/ML 2 ML VIAL IVP PRN ×2 (14:23→21:06)
[2016-07-24] MEDS: LORazepam 2 MG/ML SYRINGE IV PRN ×3 (14:23→21:05)
--- NOTE | 2016-07-24 15:27 | P.PN ---
Subjective 60-year-old male being seen this afternoon and examined. States nausea continues to to improve. Patient stated that he been experiencing epigastric pain on and off.. Patient states his last drink of alcohol was to stay 48 hours ago. States he drinks 2-3 shots of liquor daily. Patients being monitored closely for impending DTs using CIWA protocol. Patient has been seen by surgical service as scheduled tomorrow for an EGD to evaluate for possible gastritis or peptic ulcer disease. Cardiology eval with recommendations noted and appreciated. 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 The aorta per CAT scan of the chest is normal in caliber. There is a tight be self-limiting chronic dissection within the thoracic and upper abdominal aortic area. A vascular consultation has been requested a cardiology consultation has also been requested. Patient is being evaluated for atypical chest pain troponin 3 were negative. Objective - Vital Signs Vital signs: Vital Signs Temp 97.3 F L 07/24/16 12:00 Pulse 81 07/24/16 12:00 Resp 18 07/24/16 12:00 BP 133/62 07/24/16 12:00 Pulse Ox 96 07/24/16 12:00 Intake & Output 07/23/16 07/24/16 07/24/16 18:59 06:59 18:59 Intake Total 1741.863 337 Output Total 350 200 Balance -350 1541.863 337 Weight 73.482 kg 68.2 kg Intake: IV 220.42 Heparin Sodium,Porcine/ 220.42 D5w Pmx 25,000 unit In Dextrose/Water 1 500ml. bag @ 12 UNITS/KG/HR 17. 63 mls/hr IV .Q24H [facility] Rx #:[id number] Intake, IV Titration 1521.443 Amount Heparin Sodium,Porcine/ 271.443 D5w Pmx 25,000 unit In Dextrose/Water 1 500ml. bag @ 12 UNITS/KG/HR 17. 63 mls/hr IV .Q24H [facility] Rx #:[id number] Magnesium Sulfate-D5w Pmx 100 1 gm In Dextrose/Water 1 100ml.bag @ 100 mls/hr IVPB ONCE ONE Rx#: [id number] Magnesium Sulfate-D5w Pmx 100 1 gm In Dextrose/Water 1 100ml.bag @ 100 mls/hr IVPB ONCE ONE Rx#: [id number] Sodium Chloride 0.9% 1, 1050 000 ml @ 20 mls/hr IV . Q24H [facility] Rx#:[id number] Oral 337 Output: Urine 350 200 Other: Voiding Method Toilet Urinal # Voids 1 1 - Exam Physical exam 60-year-old seen and examined resting in bed alert oriented 3 appears in no acute distress Lungs essentially clear adequate air movement on room air Heart S1-S2 audible regular Abdomen flat nontender reports a sensation of nausea and spitting up clear secretions no hemolysis noted Extremities no edema noted - Labs CBC & Chem 7: 07/23/16 13:00 07/23/16 13:00 Labs: Abnormal Lab Results - Last 24 Hours (Table) 07/23/16 07/24/16 07/24/16 Range/Units 23:26 06:22 06:22 APTT 34.5 H 63.4 H (22.0-30.0) sec Cholesterol 204 H (<200) mg/dL HDL Cholesterol 97 H (40-60) mg/dL Assessment and Plan Plan: Impression Present on admission intractable nausea vomiting abdominal pain suspect due to chronic alcoholism Chronic alcoholism daily consumption last drink 48 hours prior CAT scan of the chest chronic self limiting dissection involving the lower thoracic and upper abdominal aorta type be self-limiting Hypertension essential benign Anxiety nonspecified Current every day smoker greater than a 20 year history nicotine dependency COPD with no evidence of acute exacerbation Present on admission abdominal pain radiating up to the chest area associated with nausea vomiting ultrasound of the abdomen negative suspect due to chronic alcoholism Plan Patient is scheduled tomorrow for an EGD by surgical service [facility] protocol for impending DTs resume home meds as appropriate Hyperlipidemia DVT and GI prophylaxis Patient's been advised to stop smoking cigarettes smoking cessation information provided abstinence of alcohol is been advised The above dictated assessment and findings were discussed with dr qureshi . Impression and the plan of care have been dictated as directed. Soila Cárdenas nurse practitioner acting as a scribe for dr qureshi
--- NOTE | 2016-07-24 17:10 | P.GSCN ---
History of Present Illness Consult date: 07/24/16 Reason for Consult: Abdominal pain Requesting physician: Gregorio Rogers History of present illness: Patient is a 60-year-old male, referred from Dr. Gregorio Rogers, for abdominal pain. Medical history significant for heavy alcohol abuse. Surgical history significant for appendectomy. Patient presented to the emergency department with complaints of shortness of nausea, vomiting, epigastric pain, and chest pain after swallowing a big piece of ham that he did not chew up good. CT angiogram with evidence patulous esophagus with debris within the esophagus. Ultrasound abdomen negative. Patient was admitted selective care unit to rule out coronary artery disease. Upon examination, patient complains of epigastric pain with improved nausea. Denies chills or fevers. Patient is urinating without difficulty. Past Medical History Past Medical History: COPD, Hyperlipidemia, Hypertension History of Any Multi-Drug Resistant Organisms: None Reported Past Surgical History: Adenoidectomy, Appendectomy, Heart Catheterization, Tonsillectomy Additional Past Surgical History / Comment(s): surgery on his teeth Past Anesthesia/Blood Transfusion Reactions: No Reported Reaction Past Psychological History: Anxiety, PTSD Smoking Status: Current every day smoker Past Alcohol Use History: Daily, Heavy Past Drug Use History: None Reported - Past Family History Mother Family Medical History: CVA/TIA Medications and Allergies Home Medications Medication Instructions Recorded Confirmed Type ALPRAZolam [Xanax] 2 mg PO BID 07/23/16 07/23/16 History Aspirin 81 mg PO DAILY 07/23/16 07/23/16 History Cholecalciferol [Vitamin D3] 1,000 unit PO DAILY 07/23/16 07/23/16 History Clindamycin HCl [Cleocin] 600 mg PO ONCE PRN 07/23/16 07/23/16 History Cyanocobalamin (Vitamin B-12) 1,000 mcg PO DAILY 07/23/16 07/23/16 History [Vitamin B-12] Lisinopril 40 mg PO DAILY 07/23/16 07/23/16 History Multivitamins, Thera [Multivitamin 1 tab PO DAILY 07/23/16 07/23/16 History (formulary)] Nitroglycerin Sl Tabs [Nitrostat] 0.4 mg SUBLINGUAL Q5M PRN 07/23/16 07/23/16 History Nitroglycerin [Nitro-Time] 6.5 mg PO BID 07/23/16 07/23/16 History Omeprazole [PriLOSEC] 20 mg PO AC-BID 07/23/16 07/23/16 History Simvastatin 80 mg PO DAILY 07/23/16 07/23/16 History Sucralfate [Carafate] 1 gm PO AC-TID 07/23/16 07/23/16 History diphenhydrAMINE [Benadryl] 25 mg PO QID PRN 07/23/16 07/23/16 History Allergies Allergy/AdvReac Type Severity Reaction Status Date / Time amoxicillin Allergy Unknown Verified 07/23/16 13:53 clavulanic acid Allergy Unknown Verified 07/23/16 13:53 [From Augmentin] escitalopram [From Lexapro] Allergy Unknown Verified 07/23/16 13:53 latex Allergy Unknown Verified 07/23/16 13:53 metformin Allergy Unknown Verified 07/23/16 13:53 methylprednisolone Allergy Unknown Verified 07/23/16 13:53 Surgical - Exam Vital Signs Temp Pulse Resp BP Pulse Ox 98.3 F 102 H 18 128/79 100 07/23/16 12:45 07/23/16 12:45 07/23/16 12:45 07/23/16 12:45 07/23/16 12:45 GENERAL: Pt awake and alert, in no acute distress. LUNGS: Breath sounds diminished to auscultation bilaterally. No wheezes, rales , or rhonchi. HEART: Heart S1, S2, no S3 or S4. Regular rate and rhythm. No murmurs, rubs or gallops. ABDOMEN: Soft, mild epigastric tenderness, nondistended, normoactive bowel sounds. No guarding, no rebound. No masses or organomegaly appreciated. Results - Labs 07/23/16 13:00 07/23/16 13:00 Abnormal Lab Results - Last 24 Hours (Table) 07/23/16 07/24/16 07/24/16 Range/Units 23:26 06:22 06:22 APTT 34.5 H 63.4 H (22.0-30.0) sec Cholesterol 204 H (<200) mg/dL HDL Cholesterol 97 H (40-60) mg/dL Diabetes panel 07/24/16 Range/Units 06:22 Triglycerides 55 (<150) mg/dL HDL Cholesterol 97 H (40-60) mg/dL Thyroid panel 07/24/16 Range/Units 01:14 TSH 0.566 (0.465-4.680) mIU/L Pituitary panel 07/24/16 Range/Units 01:14 TSH 0.566 (0.465-4.680) mIU/L - Imaging CT scan - chest: report reviewed US - abdomen: report reviewed Assessment and Plan Plan: Impression: 1. Abdominal pain associated with nausea and vomiting, present on admission. 2. Patulous esophagus with debris within the esophagus on computed tomography scan. Plan: Patient will undergo EGD tomorrow if medically stable. Patient will be nothing by mouth after midnight. Continue PPI. Continue IV hydration. Continue symptomatic treatment and pain management. Continue follow medical team. The above impression and plan have been discussed and directed by Dr. Arambula. Glenn JONES acting as scribe for Dr. Arambula.
[2016-07-25] MEDS: SODIUM CHLORIDE 0.9% 1,000 ML IV SCH (02:55)
[2016-07-25] MEDS: HYDROmorphone 1 MG/ML 1 ML SYRINGE IVP PRN ×3 (04:46→11:14)
[2016-07-25] MEDS: METOCLOPRAMIDE 5 MG/ML 2 ML VIAL IVP PRN ×2 (04:46→13:00)
[2016-07-25] MEDS: SUCRALFATE 1 GM TAB PO SCH ×2 (06:28→12:23)
[2016-07-25] MEDS: ONDANSETRON 4 MG/2 ML VIAL IVP PRN (08:21)
[2016-07-25] MEDS: PANTOPRAZOLE 40 MG/10 ML VIAL IVP SCH (08:21)
[2016-07-25] MEDS: LORazepam 2 MG/ML SYRINGE IV PRN ×2 (08:21→11:14)
[2016-07-25] MEDS: CYANOCOBALAMIN 500 MCG TAB PO SCH (10:01)
[2016-07-25] MEDS: ATORVASTATIN 40 MG TAB PO SCH (10:01)
[2016-07-25] MEDS: NITROGLYCERIN EXTENDED RELEASE 6.5 MG CAPSULE.ER PO SCH (10:02)
[2016-07-25] MEDS: LISINOPRIL 20 MG TAB PO SCH (10:02)
[2016-07-25] MEDS: ALPRAZolam 0.5 MG TAB PO SCH (10:02)
[2016-07-25] MEDS: THIAMINE 100 MG TAB PO SCH (12:23)
[2016-07-25] MEDS: MULTIVITAMINS, THERA 1 EACH TAB PO SCH (12:23)
[2016-07-25 13:08] VITALS: RESP 20
[2016-07-25] MEDS ORDERED: GLYCOPYRROLATE 0.2 MG/ML 2 ML VIAL ONE (13:59)
[2016-07-25] MEDS ORDERED: LIDOCAINE 1% INJ 10MG/ML (20 ML MDV) ONE (13:59)
[2016-07-25] MEDS ORDERED: PROPOFOL 10 MG/ML 20 ML VIAL IV ONE (13:59)
[2016-07-25] MEDS ORDERED: IV FLUID CONTINUATION 1,000 ML IV ONE (14:03)
--- NOTE | 2016-07-25 14:24 | P.OP ---
Date of Procedure: 07/25/16 Preoperative Diagnosis: GERD Postoperative Diagnosis: ALLERGY gastritis Esophagitis No significant hiatal hernia Procedure(s) Performed: EGD Implants: Anesthesia: MAC Surgeon: Ra Arambula Pathology: other (Antrum, esophagus) Condition: stable Disposition: PACU Indications for Procedure: Operative Findings: Description of Procedure: The patient's placed on the endoscopy table in the lateral position. He received IV sedation. The gastroscope some placed oropharynx passed in the esophagus and stomach. Scope then placed through the pylorus. The first and second portion of the duodenum appeared normal. Scope was then brought back the antrum and this appeared mildly inflamed. The scope was atrophic lock and remainder of the stomach appeared normal. There is no significant hiatal hernia. The GE junction is a 47 is. The distal esophagus appeared to be acutely inflamed. It had the appearance of Yulissa esophagitis. A biopsies performed. The proximal esophagus appeared normal. Scope was withdrawn for patient.
[2016-07-25 14:50] VITALS: BP 133/82; PULSE 115; TEMP 97.5
--- NOTE | 2016-07-25 14:58 | P.PN ---
Subjective 60-year-old male being seen this afternoon and examined. States nausea continues to to improve. Patient stated that he been experiencing epigastric pain on and off.. Patient states his last drink of alcohol was to stay 48 hours ago. States he drinks 2-3 shots of liquor daily. Patients being monitored closely for impending DTs using CIWA protocol. Patient has been seen by surgical service as scheduled tomorrow for an EGD to evaluate for possible gastritis or peptic ulcer disease. Cardiology eval with recommendations noted and appreciated. 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 The aorta per CAT scan of the chest is normal in caliber. There is a tight be self-limiting chronic dissection within the thoracic and upper abdominal aortic area. A vascular consultation has been requested a cardiology consultation has also been requested. Patient is being evaluated for atypical chest pain troponin 3 were negative. Upon examination the patient 's resting up in bed on room air states he is feeling significantly better. The patient is requesting to go home after his EGD is performed today. Patient was educated that discharge will be pending the results of the EGD and clearance from GI. Objective - Vital Signs Vital signs: Vital Signs Temp 97.6 F 07/25/16 14:04 Pulse 105 H 07/25/16 14:04 Resp 20 07/25/16 14:04 BP 141/91 07/25/16 14:04 Pulse Ox 97 07/25/16 14:04 Intake & Output 07/24/16 07/25/16 07/25/16 18:59 06:59 18:59 Intake Total 574 550 600 Output Total 800 200 Balance -226 350 600 Weight 67 kg Intake: Intake, IV Titration 550 600 Amount Sodium Chloride 0.9% 1, 550 600 000 ml @ 20 mls/hr IV . Q24H [facility] Rx#:[id number] Oral 574 0 Output: Urine 800 200 Other: Voiding Method Toilet Urinal # Voids 2 3 - Exam GENERAL EXAM: Alert, active, comfortable in no apparent distress. HEAD: Normocephalic. EYES: Normal reaction of pupils, equal size. NOSE: Clear with pink turbinates. THROAT: No erythema or exudates. NECK: No masses, no JVD. CHEST: No chest wall deformity. LUNGS: Equal air entry with no crackles, wheeze, rhonchi or dullness. CVS: S1 and S2 normal with no audible mumurs, regular rhythm. ABDOMEN: No hepatosplenomegaly, normal bowel sounds, no guarding or rigidity. EXTREMITIES: No edema noted, pedal pulses palpable. SKIN: No rashes CENTRAL NERVOUS SYSTEM: No focal deficits, tone is normal in all 4 extremities. 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 type be self-limiting Hypertension essential benign Anxiety nonspecified Current every day smoker greater than a 20 year history nicotine dependency COPD with no evidence of acute exacerbation Present on admission abdominal pain radiating up to the chest area associated with nausea vomiting ultrasound of the abdomen negative suspect due to chronic alcoholism Plan Patient is scheduled tomorrow for an EGD by surgical service [facility] protocol for impending DTs resume home meds as appropriate Hyperlipidemia DVT and GI prophylaxis Patient's been advised to stop smoking cigarettes smoking cessation information provided abstinence of alcohol is been advised I performed an examination of the patient and discussed their management with the nurse practitioner. I have reviewed the nurse practitioner's note and agree with the documented findings and plan of care. We are covering for Dr. Rogers today.
--- NOTE | 2016-07-25 15:18 | P.DS ---
Providers Date of admission: 07/23/16 16:27 Expected date of discharge: 07/25/16 Attending physician: Gregorio Rogers Consults: 07/24/16 15:17 Consult Physician Stat Consulting Provider: Burton Veronica Consult Reason/Comments: aneurysm Do you want consulting provider notified?: Yes 07/25/16 14:25 Consult Physician Routine Consulting Provider: Ra Arambula Consult Reason/Comments: egd Do you want consulting provider notified?: Already Contacted Primary care physician: [facility] Course: 60-year-old male being seen this afternoon and examined. States nausea continues to to improve. Patient stated that he been experiencing epigastric pain on and off.. Patient states his last drink of alcohol was to stay 48 hours ago. States he drinks 2-3 shots of liquor daily. Patients being monitored closely for impending DTs using CIWA protocol. Patient has been seen by surgical service as scheduled tomorrow for an EGD to evaluate for possible gastritis or peptic ulcer disease. Cardiology eval with recommendations noted and appreciated. 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 The aorta per CAT scan of the chest is normal in caliber. There is a tight be self-limiting chronic dissection within the thoracic and upper abdominal aortic area. A vascular consultation has been requested a cardiology consultation has also been requested. Patient is being evaluated for atypical chest pain troponin 3 were negative. Upon examination the patient 's resting up in bed on room air states he is feeling significantly better. The patient is requesting to go home after his EGD . EGD results came back and showed some ALLERGIC gastritis and esophagitis no significant hiatal hernia some Yulissa was observed so the patient will be put on nystatin outpatient. Pertinent Studies: Patient did have a chest x-ray, chest CTA, abdominal ultrasound, and an EGD Procedures: EGD Patient Condition at Discharge: Stable Plan - Discharge Summary New Discharge Prescriptions: Nystatin 100,000 Unit/ml Susp [Mycostatin Oral Susp] 5 ml PO QID #140 ml Discharge Medication List ALPRAZolam [Xanax] 2 mg PO BID 07/23/16 [History] Aspirin 81 mg PO DAILY 07/23/16 [History] Cholecalciferol [Vitamin D3] 1,000 unit PO DAILY 07/23/16 [History] Clindamycin HCl [Cleocin] 600 mg PO ONCE PRN 07/23/16 [History] Cyanocobalamin (Vitamin B-12) [Vitamin B-12] 1,000 mcg PO DAILY 07/23/16 [ History] Lisinopril 40 mg PO DAILY 07/23/16 [History] Multivitamins, Thera [Multivitamin (formulary)] 1 tab PO DAILY 07/23/16 [History ] Nitroglycerin Sl Tabs [Nitrostat] 0.4 mg SUBLINGUAL Q5M PRN 07/23/16 [History] Nitroglycerin [Nitro-Time] 6.5 mg PO BID 07/23/16 [History] Omeprazole [PriLOSEC] 20 mg PO AC-BID 07/23/16 [History] Simvastatin 80 mg PO DAILY 07/23/16 [History] Sucralfate [Carafate] 1 gm PO AC-TID 07/23/16 [History] diphenhydrAMINE [Benadryl] 25 mg PO QID PRN 07/23/16 [History] Nystatin 100,000 Unit/ml Susp [Mycostatin Oral Susp] 5 ml PO QID #140 ml [Rx] Follow up Appointment(s)/Referral(s): Gregorio Rogers MD [Primary Care Provider] - 1-2 days Ra Aramubla MD [STAFF PHYSICIAN] - 1 Week Activity/Diet/Wound Care/Special Instructions: Please waste picker prescription in [facility] upon discharge. Discharge Disposition: HOME SELF-CARE
--- NOTE | 2016-07-25 15:41 | ECHOF ---
Referral Reason:chest pain MEASUREMENTS -------- HEIGHT: 170.2 cm WEIGHT: 68.0 kg BP: 113/71 RVIDd: 2.8 cm (< 3.3) IVSd: 0.8 cm (0.6 - 1.1) LVIDd: 3.8 cm (3.9 - 5.3) LVPWd: 1.0 cm (0.6 - 1.1) IVSs: 1.2 cm LVIDs: 2.8 cm LVPWs: 1.2 cm LA Diam: 2.9 cm (2.7 - 3.8) LAESV Index (A-L): 19.64 ml/m Ao Diam: 3.0 cm (2.0 - 3.7) AV Cusp: 1.7 cm (1.5 - 2.6) LA Diam: 2.9 cm (2.7 - 3.8) MV EXCURSION: 16.920 mm (> 18.000) MV EF SLOPE: 93 mm/s (70 - 150) EPSS: 0.2 cm MV E Good: 0.88 m/s MV DecT: 195 ms MV A Good: 0.86 m/s MV E/A Ratio: 1.03 RAP: 5.00 mmHg RVSP: 21.14 mmHg FINDINGS -------- Sinus rhythm. This was a technically adequate study. LV size, wall thickness and systolic function are normal, with an EF greater than 55%. The right ventricle is normal in size. Normal LA size by volume 22+/-6 ml/m2. The right atrial size is normal. There is mild aortic valve sclerosis. There is no evidence of aortic regurgitation. Mild mitral annular calcification present. Mild mitral regurgitation is present. Mild tricuspid regurgitation present. There is no evidence of pulmonary hypertension. The right ventricular systolic pressure, as measured by Doppler, is 21.14mmHg. Trace/mild (physiologic) pulmonic regurgitation. The aortic root size is normal. There is no pericardial effusion. CONCLUSIONS -------- 1. LV size, wall thickness and systolic function are normal, with an EF greater than 55%. 2. There is no pericardial effusion. 3. There is mild aortic valve sclerosis. 4. Mild mitral annular calcification present. 5. Mild mitral regurgitation is present. 6. Mild tricuspid regurgitation present. 7. There is no evidence of pulmonary hypertension. 8. The right ventricular systolic pressure, as measured by Doppler, is 21.14mmHg. 9. Trace/mild (physiologic) pulmonic regurgitation. 10. The aortic root size is normal. LEARNING AND DEVELOPMENT OFFICER: Concha Wagoner RDCS
[2016-07-25] MEDS ORDERED: NYSTATIN 100,000 UNIT/ML SUSP 500,000 UNIT/5 ML CUP PO SCH (18:00)
== END 2016-07-25 16:00 | disposition home or self-care (01) | DRG 391 ==
LOC: EC 12:37 → 6SEL 16:27 → 5MS5E 07-25 12:20
PROVIDERS: ADMIT Family Medicine; ATTEND Family Medicine
PROC: HZ2ZZZZ Detoxification Services for Substance Abuse Treatment (ICD-10-PCS; 2016-07-23)
PROC: 0DB78ZX Excision of Stomach, Pylorus, Via Natural or Artificial Opening Endoscopic, Diagnostic (ICD-10-PCS; 2016-07-25)
PROC: 0DB58ZX Excision of Esophagus, Via Natural or Artificial Opening Endoscopic, Diagnostic (ICD-10-PCS; principal; 2016-07-25 14:25)
DX: K29.60 Other gastritis without bleeding (principal); I71.03 Dissection of thoracoabdominal aorta; B37.81 Candidal esophagitis; F10.239 Alcohol dependence with withdrawal, unspecified; K21.0 Gastro-esophageal reflux disease with esophagitis; R07.89 Other chest pain; J44.9 Chronic obstructive pulmonary disease, unspecified; R00.0 Tachycardia, unspecified; I10 Essential (primary) hypertension; E78.5 Hyperlipidemia, unspecified; F41.9 Anxiety disorder, unspecified; F17.210 Nicotine dependence, cigarettes, uncomplicated; R06.2 Wheezing; F43.10 Post-traumatic stress disorder, unspecified; Z79.899 Other long term (current) drug therapy; Z79.82 Long term (current) use of aspirin; Z71.6 Tobacco abuse counseling; Z71.41 Alcohol abuse counseling and surveillance of alcoholic; Z88.0 Allergy status to penicillin; Z88.8 Allergy status to other drugs, medicaments and biological substances; Z88.1 Allergy status to other antibiotic agents; Z91.040 Latex allergy status; Z90.49 Acquired absence of other specified parts of digestive tract; Z82.3 Family history of stroke; Y90.0 Blood alcohol level of less than 20 mg/100 ml
CPT/HCPCS: 36415; 43239; 71020; 71275; 76700; 80053; 80061; 80320; 82150; 82550; 82553; 83690; 83735; 83880; 84439; 84443; 84484; 85025; 85379; 85610; 85730; 88305; 88342; 93005; 93306; 94760; 96361; 96365; 96366; 96367; 96375; 96376; 99285

== ENCOUNTER 2017-08-24 09:30 | Day surgery (SDC) | payer MEDICARE ==
[2017-08-19 15:23] VITALS: BMI 24.5
--- NOTE | 2017-08-24 06:53 | HP ---
HISTORY AND PHYSICAL CHIEF COMPLAINT: Fluid in the left ear. HISTORY OF PRESENT ILLNESS: This patient is a 61-year-old male who was recently seen in my office for evaluation of a plugged sensation in his left ear. The patient states that the left ear has felt plugged and his hearing was decreased in the left ear for several months. He denies having any sinus issues or recent URI. At the time that he was seen in the office, clinical examination of the ears revealed chronic left serous otitis media so-called glue ear. The patient was placed on several courses of antibiotics and oral steroids. Upon his last visit, he was still complaining of the decreased hearing in the left ear as well as a plugged sensation. Clinical examination revealed the patient still had fluid present in the left middle ear space and it was recommended that he undergo a left myringotomy with insertion of a ventilation tube under IV sedation with M.A.C. PAST MEDICAL HISTORY: Past medical history reveals that the patient has ALLERGIES to AMOXICILLIN, AUGMENTIN, METFORMIN, LEXAPRO, MEDROL DOS-PAC, AND LATEX. Current medications include Zyrtec, Nitrostat, nitroglycerin, lisinopril, simvastatin, Xanax and 81 mg aspirin. REVIEW OF SYSTEMS: Review of systems reveals cardiovascular system is positive for hypertension and ASHD. Respiratory system is positive for COPD/emphysema. Metabolic/endocrine system is positive for hypercholesterolemia. The remainder review of systems essentially unremarkable. The patient stated that he occasionally smokes cigarettes and was advised to stop for obvious health reasons. PREVIOUS SURGERIES: Include appendectomy, tonsillectomy, adenoidectomy, endoscopic sinus surgery, uvulopalatoplasty (UP3), anterior cervical fusion, and arthroscopic knee surgery. PHYSICAL EXAMINATION: This patient is a very pleasant 61-year-old male who was alert and cooperative. HEENT EXAMINATION: Patient normocephalic. Examination of right ear is unremarkable. Examination left ear reveals left tympanic membrane is dull with fluid in the left middle ear space. Pupils equal, round, react to light accommodation. Extraocular movements within normal limits. Intranasal examination reveals moderate to severe septal deviation with compensatory hypertrophy inferior turbinates. Examination of oropharynx, palpation of the neck, cranial nerves 2 through 12 and remainder of the head and neck exam is unremarkable. CHEST/CARDIOVASCULAR: Both lung mars are clear to percussion and auscultation. The patient is in regular sinus rhythm. S1 and S2 are present without any murmurs S3s or S4. Peripheral pulses are bilaterally symmetrical and within normal limits. ABDOMEN: There is no evidence any masses, megaly, or tenderness. The abdomen is soft. Skin is unremarkable. Musculoskeletal and neurological are within normal limits. Rectal exam is deferred at this time because the patient has this done on a regular basis at his family physician's office. The remainder of physical exam is unremarkable. IMPRESSION: Chronic left serous otitis media. PLAN: The patient is scheduled undergo a left myringotomy with insertion of ventilation tubes under IV sedation with M.A.C. in the a.m. Attention RNs in the pre-surgical area: I have not ordered any pre-surgical prophylactic antibiotics or any other medication for this patient. If the pharmacy department sends any pre-surgical prophylactic antibiotics to the pre-surgical area for this patient, please cancel that order and return the medication to pharmacy and make sure that the patient's account is credited appropriately. I have discussed the risks, benefits and alternative therapies for the above-mentioned procedure and for both sedation/analgesia as well as necessary blood product administration, if indicated, as they pertain to this patient. The patient has indicated his or her understanding and acceptance of the risks and procedures discussed. MMODL / IJN: [id number] /
[~2017-08-24 09:30] MED LIST: LACTATED RINGERS 1,000 ML IV SCH; LIDOCAINE 1% 20 ML VIAL (10MG/ML) FOR IV START INTRADERMA PRN; MORPHINE SULFATE 2 MG/ML SYRINGE IV PRN; ONDANSETRON 4 MG/2 ML VIAL IVP ONE; Pre Op ABX Message 1 EACH MISC MISCELLANE ONE
[2017-08-24 10:52] VITALS: TEMP 97.8
[2017-08-24] MEDS ORDERED: OFLOXACIN 0.3% OPHTH DROPS 5 ML BOTTLE LEFT EAR ONE ×3 (11:52→12:16)
[2017-08-24] MEDS ORDERED: MIDAZOLAM 2 MG/2 ML VIAL ONE (11:54)
[2017-08-24] MEDS ORDERED: PROPOFOL 10 MG/ML 20 ML VIAL IV ONE (11:54)
[2017-08-24] MEDS ORDERED: EPINEPHrine 1 MG/ML 1 ML AMP IRRIGATION ONE ×2 (12:10)
[2017-08-24 12:49] VITALS: BP 138/91
[2017-08-24 13:04] VITALS: PULSE 77; RESP 16
--- NOTE | 2017-08-25 04:00 | OP ---
OPERATIVE REPORT DATE OF SURGERY: 08/24/2017 PREOPERATIVE DIAGNOSIS: Chronic left serous otitis media. POSTOPERATIVE DIAGNOSIS: Chronic left serous otitis media. ANESTHESIA: IV sedation with M.A.C. OPERATIVE PROCEDURE: Left myringotomy with insertion of a Rodriguez ventilation tube. OPERATING SURGEON: Dr. Davidson COMPLICATIONS: None. PROCEDURE: The patient was placed on the operating table in supine position. After an uneventful induction and IV sedation, satisfactory sedation was obtained. Next, the patient was draped in the usual and customary fashion. Next, using the Zeiss operating microscope and a #3 aural speculum, the left external auditory canal was cleansed of all wax and debris. It was immediately noted the patient had a large anterior wall bulge, which made insertion of a ventilation tube somewhat difficult. The tympanic membrane appeared to have significant amount of fluid in the middle ear space. The tympanic membrane appeared to have significant amount of fluid behind it in the middle ear space. It was therefore elected to make an incision in the anterior inferior quadrant of the left tympanic membrane. The fluid was suctioned free with a Back suction tip. Next, because of anterior wall bulge, it was felt it would be easier to insert a Rodriguez silastic ventilation tube because of the smaller rim that is has present. At this point, the procedure was terminated. There were no intraoperative complications. The patient tolerated procedure well and was returned to recovery room in satisfactory condition. MMODL / IJN: [id number] /
== END 2017-08-24 13:05 | disposition home or self-care (01) ==
LOC: OR 09:30
PROVIDERS: ATTEND Otolaryngology
DX: H65.22 Chronic serous otitis media, left ear (principal); J34.2 Deviated nasal septum; J34.3 Hypertrophy of nasal turbinates; I10 Essential (primary) hypertension; I25.10 Atherosclerotic heart disease of native coronary artery without angina pectoris; F17.210 Nicotine dependence, cigarettes, uncomplicated; J43.9 Emphysema, unspecified; E78.00 Pure hypercholesterolemia, unspecified; Z79.82 Long term (current) use of aspirin; Z79.899 Other long term (current) drug therapy; Z88.0 Allergy status to penicillin; Z88.8 Allergy status to other drugs, medicaments and biological substances; Z91.040 Latex allergy status
CPT/HCPCS: 69436; J2250; J0171; J2405; J2704

== ENCOUNTER → 2023-05-27 | Outpatient (CLI) | payer MEDICARE ==
[2023-05-27 09:42] VITALS: BP 142/72; PULSE 73; RESP 15; TEMP 98.7
--- NOTE | 2023-05-27 14:36 | P.PAINPG ---
PQRS Measure Charge Sheet Comment: HISTORY OF PRESENT ILLNESS: A 67 yr old male as a referral from Dr Rogers presents today w severe and chronic neck pain > 6 mo secondary to C4-C6 Fusion, Post Laminectomy Syndrome for evaluation. Pt states pain level is provoked at 6 /10 in intensity, constant, localized in the cervical spine, predominantly axial, numbing in character w occasional shooting pain towards the R hand. Pain is provoked by lifting. Pain is alleviated by medications (Zanaflex, Ibu), manual massage, repositioning an d rest. PMH: OA, COPD, Hyperlipidemia, HTN, Anxiety/ PTSD PSH: Adenoidectomy, Appendectomy, Heart Catheterization, Tonsillectomy, Dental Surgery SH: Daily tobacco use, Daily ETOH use, No illicit drug use FH: Mo- CVA All: See list Meds: See list REVIEW OF ORGAN SYSTEMS: CONSTITUTIONAL: No fevers or chills. No recent weight loss. NEUROLOGICAL: + numbness and tingling along the distal extremities. No seizure disorders or headaches. MUSCULOSKELETAL: + pain PSYCHIATRIC: Denies current depression or suicidal thoughts. Physical Examinations : Constitutional : Cooperative , not in acute distress . Neurologic : Cranial nerve II to XII intact. No focal neurological deficits. Psychiatric : alert & oriented x 3. Matching mood & appropriate affect. Judgment & insight intact. Musculoskeletal : Cervical Spine Motor strength in the deltoid and biceps: Normal right side. Normal Left side Motor strength biceps and the wrist extensors: Normal right side . Normal left side Motor strength in the triceps muscle: Normal right side. Normal left side Deep tendon reflexes: Normal at the biceps. Normal at Brachioradialis. Normal at triceps Vertebral body tenderness to deep palpation over C6 Cervical facet loading test: positive bilaterally Spurling test: positive bilaterally Neck distraction test: positive bilaterally Torrey sign: positive bilaterally Lumbar spine Motor strength lower extremities ,thigh and legs 5/5 Right side , 5/5 Left side Deep tendon reflexes : Normal Knee Jerk. Normal Ankle Jerk Vertebral body tenderness over Harry Test positive Lumbar facet Loading Test: positive Right / positive Left Range of motion of the lumbar spine Flexion 30 degrees, extension 10 degrees Straight Leg Raise test: Left/ Right positive at degree Neelima test: positive right / positive left. Severe tenderness over the Sacroiliac joint on the Right / Left sides Gaenslen test: positive bilaterally Seated flexion test: positive bilaterally. Sacral spine : Severe tenderness over the Sacroiliac joint: right side / left side Range of motion: Flexion of the lumbar spine <60 degrees Range of motion: Extension of the lumbar spine <20 degrees Gaenslen's Test positive Neelima test: positive right side / left side Thigh Thrust Test Sacral Thrust Test Imaging: CT noncontrast of the cervical spine from 04/15/2023 reviewed Assessment/ Plan : C4-C6 Fusion, Post laminectomy Syndrome Recommendation of physician guided home exercises/ stretches of the cervical spine. All questions answered. I have spent greater than 30 minutes on patient care today. Dr Gross was available by phone for the evaluation of this patient. The time was used to review the medical records including relevant urine studies and Prescription history (MAPs), review of the available imaging, evaluation and examination of t he patient, coordination of care with the medical staff and if applicable referring physicians, as well as creation of the medical record PQRS Narrative: Smoking Status Current every day smoker Home Medications: Ambulatory Orders ALPRAZolam [Xanax] 2 mg PO BID PRN 07/23/16 Aspirin 81 mg PO DAILY 07/23/16 Cholecalciferol [Vitamin D3 (25 Mcg = 1000 Iu)] 1,000 unit PO DAILY 07/23/16 Cyanocobalamin (Vitamin B-12) [Vitamin B-12] 1,000 mcg PO DAILY 07/23/16 Multivitamins, Thera [Multivitamin (formulary)] 1 tab PO DAILY 07/23/16 Nitroglycerin Sl Tabs [Nitrostat] 0.4 mg SUBLINGUAL Q5M PRN 07/23/16 Nitroglycerin [Nitro-Time] 6.5 mg PO BID 07/23/16 Simvastatin 80 mg PO DAILY 07/23/16 diphenhydrAMINE [Benadryl] 25 mg PO QID PRN 07/23/16 lisinopriL 40 mg PO DAILY 07/23/16 Controlled Substance Measures - Controlled Substance Measures Is patient prescribed a controlled substance at discharge?: No
== END ==
LOC: PNWHC3 08:39
PROVIDERS: ATTEND Specialist
DX: M47.812 Spondylosis without myelopathy or radiculopathy, cervical region (principal); M43.22 Fusion of spine, cervical region; M96.1 Postlaminectomy syndrome, not elsewhere classified; F17.200 Nicotine dependence, unspecified, uncomplicated; Z88.0 Allergy status to penicillin; Z88.1 Allergy status to other antibiotic agents; Z91.040 Latex allergy status; Z88.8 Allergy status to other drugs, medicaments and biological substances
CPT/HCPCS: 99211

== ENCOUNTER → 2023-08-03 | Outpatient (CLI) | payer MEDICARE ==
--- NOTE | 2023-08-03 19:22 | MR ---
EXAMINATION TYPE: MR cervical spine wo con DATE OF EXAM: 08/03/2023 COMPARISON: Correlation radiographs 07/15/2023 HISTORY: 67-year-old male M47.812,M54.4 SPONDYLOSIS W/O MYELOPATHY OR RADICU, Neck pain, BUE radiculo alcides, hx surgery. TECHNIQUE: Multiplanar, multisequence images of the cervical spine were acquired without contrast. FINDINGS: No cranial cervical junction abnormality, predental space widening, or prevertebral soft tissue swell ing. Overall alignment is maintained. The patient is status post C4-C6 ACDF. Mild degenerative disc disease throughout with desiccated disks and small disc bulges. Some ligamentum flavum thickening is also noted both above and below the fusion. No suspicious bone marrow replacement. At C2-C3, left greater than right moderate to severe hypertrophic facet arthropathy along with uncove rtebral joint arthropathy. Changes result in moderate left neuroforaminal stenosis. No significant sp inal canal stenosis. At C3-C4, there is disc osteophyte complex with ligamentum flavum thickening and right greater than l eft hypertrophic facet and uncovertebral joint arthropathy. Changes result in severe right and modera te to severe left neuroforaminal stenosis. Mild overall spinal canal stenosis with abutment of the ve ntral cord but no cord flattening. At the fused C4-C5 level, mild facet arthropathy without canal or foraminal stenosis. At the fused C5-C6 level, hypertrophic facet and uncovertebral joint arthropathy contributing to mode rate to severe left and moderate right neural foraminal stenosis. No significant spinal canal stenosi s. At 6-C7, broad-based disc osteophyte complex with uncovertebral joint and facet arthropathy. Changes result in moderate to severe left and mild right neuroforaminal stenosis. Disc bulge and ligamentum f lavum thickening contributes to mild narrowing of the spinal canal. At C7-T1, no significant canal or foraminal stenosis. Normal course and signal intensity of the cervical spinal cord. 4. IMPRESSION: 1. Patient status post C4-C6 ACDF. 2. [id number] multilevel degenerative disc disease but with moderate to severe multilevel hyper trophic facet and uncovertebral joint arthropathy. 3. Changes result in mild overall spinal canal stenosis both above and below the fusion at C3-C4 and C6-C7. No high-grade canal compromise or cord compression. 4. Changes also result in variable moderate to severe bilateral neural foraminal stenoses as outlined above.
== END | disposition home or self-care (01) ==
LOC: RADMRIMAIN 12:22
PROVIDERS: ATTEND Orthopaedic Surgery
DX: M47.812 Spondylosis without myelopathy or radiculopathy, cervical region (principal); M50.30 Other cervical disc degeneration, unspecified cervical region; M99.71 Connective tissue and disc stenosis of intervertebral foramina of cervical region; Z98.1 Arthrodesis status
CPT/HCPCS: 72141

== ENCOUNTER 2023-10-12 08:30 | Inpatient (IN) | payer MEDICARE ==
[2023-10-12] MEDS ORDERED: ACETAMINOPHEN TAB 325 MG TAB ONE (17:28)
[2023-10-12] MEDS ORDERED: HYDROcodone/APAP 10-325MG 1 EACH TAB ONE (17:28)
[2023-10-12] MEDS ORDERED: HYDROmorphone 0.5 MG/0.5 ML SYRINGE ONE (20:43)
[2023-10-13] MEDS ORDERED: HYDROcodone/APAP 5-325MG 1 EACH TAB ONE (06:21)
[2023-10-13] MEDS ORDERED: SENNOSIDES-DOCUSATE SODIUM 1 EACH TAB PO ONE (08:46)
--- NOTE | 2023-11-05 09:17 | CT ---
Patient Edward Weaver ID [id number] Order # EXAMINATION TYPE: CT cervical spine wo con DATE OF EXAM: 10/12/2023 COMPARISON: No comparisons available with PACS downtime. HISTORY: Postsurgical CT DLP: 362.8 mGycm CONTRAST: None CT of the cervical spine is performed in the axial plane at 2 mm thick sections. Reconstructed image s in the coronal, and sagittal plane are reviewed on the computer. No acute fractures are evident. Postsurgical changes are present from anterior cervical fusion through C4-C6. Disc spacers at the C3- 4 disc space. Vertebral body alignment is normal. Disc heights are preserved. Vertebral body heights are preserved. No spinal canal stenosis is evident Facet hypertrophy is present on the left at C2-3 with some foraminal stenosis narrowing is present bi laterally through the foramen at C3-4. IMPRESSION: 1. Postsurgical changes from anterior cervical fusion
== END 2023-10-13 13:34 | disposition home or self-care (01) | DRG 472 ==
LOC: OR 08:30 → DISRECOVER 09:37
PROVIDERS: ADMIT Orthopaedic Surgery; ATTEND Orthopaedic Surgery
PROC: 0RG10A0 Fusion of Cervical Vertebral Joint with Interbody Fusion Device, Anterior Approach, Anterior Column, Open Approach (ICD-10-PCS; principal; 2023-10-12)
PROC: 0RT30ZZ Resection of Cervical Vertebral Disc, Open Approach (ICD-10-PCS; 2023-10-12)
DX: M48.02 Spinal stenosis, cervical region (principal); G99.2 Myelopathy in diseases classified elsewhere; M47.22 Other spondylosis with radiculopathy, cervical region; I10 Essential (primary) hypertension; G47.30 Sleep apnea, unspecified; F17.210 Nicotine dependence, cigarettes, uncomplicated; E78.5 Hyperlipidemia, unspecified; Z79.899 Other long term (current) drug therapy; Z86.73 Personal history of transient ischemic attack (TIA), and cerebral infarction without residual deficits